=== PATIENT | female | born 1980 ===

== ENCOUNTER 2020-12-12 09:53 | Outpatient (REF) | payer OTHER, SELFPAY ==
[2020-12-12 13:45] LABS: CT PCR NOT DETECTED (Not Detect.); NG PCR NOT DETECTED (Not Detect.)
[2020-12-13 09:40] LABS: BV Int Neg Control Negative (Negative); BV Int Pos Control Positive (Positive)
== END 2020-12-12 09:54 | disposition home or self-care (01) ==
LOC: HO.LAB 09:53
PROVIDERS: Visit Provider Advanced Practice Midwife
DX: Z01.411 Encounter for gynecological examination (general) (routine) with abnormal findings (principal); R10.2 Pelvic and perineal pain; Z20.2 Contact with and (suspected) exposure to infections with a predominantly sexual mode of transmission
CPT/HCPCS: 87480; 87491; 87510; 87591; 87660

== ENCOUNTER 2020-12-21 12:20 | Outpatient (REF) | payer OTHER, SELFPAY ==
--- NOTE | ~2020-12-21 | US_ITS ---
EXAMINATION: ULTRASOUND PELVIS AND TRANSVAGINAL CLINICAL INFORMATION: Pelvic and perineal pain COMPARISON: None TECHNIQUE: Transabdominal and transvaginal ultrasound the pelvis is performed. FINDINGS: The uterus is anteverted, anteflexed measuring 8.0 cm in length, 3.5 cm in AP and 5.2 cm in transverse dimension. The endometrial thickness is 0.6 cm. The uterus is homogeneous in echotexture. There are small nabothian cysts seen in the cervix. The right ovary measures 2.8 x 1.4 x 1.5 cm and volume 3.1 mL. Previously right ovary measured 2.0 x 1.1 x 1.7 cm. Left ovary measures 2.0 x 1.3 x 1.4 cm and volume 2.9 mL. Previously left ovary measured 2.9 x 2.2 x 2.6 cm. Both ovaries are unremarkable. There is no free fluid in the cul-de-sac. US/US pelvic and transvaginal IMPRESSION: Unremarkable uterus and ovaries. Small nabothian cysts seen in the cervix.
== END 2020-12-21 12:21 | disposition home or self-care (01) ==
LOC: HO.US 12:20
PROVIDERS: PCP Internal Medicine; Visit Provider Advanced Practice Midwife
DX: R10.2 Pelvic and perineal pain (principal)
CPT/HCPCS: 76830; 76856

== ENCOUNTER → 2021-01-04 10:55 | Outpatient (BNVA) | payer OTHER, SELFPAY | PROVIDERS: PCP Internal Medicine; Visit Provider Advanced Practice Midwife ==

== ENCOUNTER 2023-04-11 09:39 | Outpatient (AMB) | payer OTHER, SELFPAY ==
--- NOTE | 2023-04-11 09:47 | A.OFFVIS_ITS ---
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 Scribed for FANNY Deluna by Marissa Hood biomedical engineering aide, on 04/11/2023 at 10:14 am EST. Cab Supervisor Required: No Information Interpreted: non-clinical & clinical Software Quality Assurance Engineer: Software Quality Assurance Engineer Present (Noreen) Allergies lactose [LACTOSE] Adverse Reaction (Unknown, Verified 04/11/23 09:52) GI UPSET milk [MILK] Adverse Reaction (Unknown, Verified 04/11/23 09:52) GI UPSET Is last menstrual period known: Yes Last menstrual period: 04/03/23 Post menopausal: No Patient : No HPI HPI Comments History of Present Illness Details She is a premenopausal woman presenting for annual exam. 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 Has oral lesions, bleeding gums. Unaware of any vaginal lesions, no unusual VB. Reports blood sugars are high at 108. She admits to eating healthy and tries to stay active with exercise. Currently not sexually active. Regular monthly periods that are more painful with cramping. Uses OTC for pain management. Denies vaginal itching and irritation. STD screening offered; she accepts. Denies family hx of breast, colon and ovarian cancer. Last pap smear 03/19/17. [facility] Medical History Behcet's disease History of anxiety History of depression Insomnia Nightmare disorder Surgical History Hx of tubal ligation Family History Maternal Grandmother Diabetes Mother Diabetes Social History Alcohol intake: never Patient Tobacco Use Status: Never used Tobacco Sexual orientation: Straight/Heterosexual Gender identity: Female Female Reproductive History Menstrual Duration of menses: 3-5 days Date of last menstrual period: 04/03/23 control method: permanent sterilization Permanent Sterilization: BTL Total pregnancies: 3 Full term: 3 Number of Living Children: 3 Date of last pap smear: 03/19/17 (neg pap and hp) History of abnormal pap smear: Yes (04/13 lgsil 06/13 colpo carol 1) Physical Exam Vital Signs: Last Vital Signs BP 122/70 04/11/23 09:49 BMI result Body Mass Index 26.3 Const General: cooperative, healthy appearing, well developed and alert Orientation/consciousness: patient oriented x3 HEENT Head: Yes normal to inspection Eyes General: appearance normal, both eyes and all related structures Neck Neck: Yes normal visual inspection Thyroid: Thyroid normal Chest Chest palpation & inspection: normal inspection of the chest Breast/axilla inspection: normal inspection of the breasts (no puckering, dimpling, peau de orange, retraction, discharge, masses) Breast/axilla palpation: normal palpation of the breasts Resp Effort & Inspection: normal respiratory effort GI Inspection: Yes normal to inspection Palpation (GI): Soft to palpation (to palpation) Rectal Exam - Female: deferred Other: trembling and anxious during pelvic exam General: Yes bladder normal to inspection External Female Exam: normal external appearance and normal appearance of the urethra Speculum Exam - Vagina: normal appearance of the vagina, normal palpation and normal vaginal discharge Speculum Exam - Cervix: normal appearance of the cervix and normal palpation Bimanual exam- vagina & uterus: normal palpation and normal palpation Bimanual Exam- Adnexa, other: normal adnexae and no masses Skin General skin exam: no rashes or lesions noted Neuro General: patient oriented x3 Cognition (Neuro): normal cognition Extrem General: Yes normal to inspection Psych Attitude: cooperative Thought process: Normal thought process present Assessment & Plan Assessment & Plan (1) Encounter for well woman exam: Code(s): Z01.419 - Encounter for gynecological examination (general) (routine) without abnormal findings Plan: Discussed: Current recommendations for pap smears per ASCCP guidelines Breast awareness and periodic self breast exams. Mammogram ordered. Maintaining a healthy lifestyle including a well balanced diet and routine exercise. Consult with PCP regarding blood sugars. Encouraged to use condoms for STD prevention if become sexually active. Encouraged patient to sign up for patient portal. All of her questions and concerns were addressed to the best of my ability. RTO in one year for AG. (2) Pelvic pain: Code(s): R10.2 - Pelvic and perineal pain Plan: BV testing and GC/CT panel done today. Await results and treat accordingly. Continue to use OTC with heating pad for pain management. (3) Dysmenorrhea: Code(s): N94.6 - Dysmenorrhea, unspecified Plan: Pelvic US ordered. Follow up for results. Orders: Orders MM tomosynthesis screening BI Today Z12.31 - Encounter for screening mammogram for malignant neoplasm of breast US pelvic and transvaginal Today N94.6 - Dysmenorrhea, unspecified Bacterial Vaginosis Panel Today N94.6 - Dysmenorrhea, unspecified, R10.2 - Pelvic and perineal pain CT NG by PCR Today N94.6 - Dysmenorrhea, unspecified, R10.2 - Pelvic and perineal pain Pap Smear Today Z01.419 - Encounter for gynecological examination (general) (routine) without abnormal findings Coding Level of Care Code Est Pt Prev Care 40-64y(74884) Diagnoses Encounter for well woman exam Z01.419 Pelvic pain R10.2 Dysmenorrhea N94.6
[2023-04-11 09:49] VITALS: BP 122/70; BMI 26.3
== END 2023-04-11 10:29 | disposition home or self-care (01) ==
LOC: HO.HWSW 09:39
PROVIDERS: PCP Internal Medicine; Visit Provider Advanced Practice Midwife
DX: Z01.419 Encounter for gynecological examination (general) (routine) without abnormal findings (principal); R10.2 Pelvic and perineal pain; N94.6 Dysmenorrhea, unspecified
CPT/HCPCS: 99396

== ENCOUNTER 2023-04-11 09:39 | Outpatient (REF) | payer OTHER, SELFPAY ==
[2023-04-12 05:15] LABS: CT PCR NOT DETECTED (Not Detect.); NG PCR NOT DETECTED (Not Detect.)
[2023-04-12 11:45] LABS: BV Int Neg Control Negative (Negative); BV Int Pos Control Positive (Positive)
== END 2023-04-11 09:40 | disposition home or self-care (01) ==
LOC: HO.LAB 09:39
PROVIDERS: PCP Internal Medicine; Visit Provider Advanced Practice Midwife
DX: R10.2 Pelvic and perineal pain (principal); N94.6 Dysmenorrhea, unspecified
CPT/HCPCS: 0353U; 87480; 87510; 87660

== ENCOUNTER 2023-04-11 10:24 | Outpatient (REF) | payer OTHER, SELFPAY ==
[2023-04-16 05:09] LABS: HPV mRNA E6/E7 rflx Not Detected (Not Detected)
== END 2023-04-11 10:25 | disposition home or self-care (01) ==
LOC: HO.LNP 10:24
PROVIDERS: Visit Provider Advanced Practice Midwife
DX: Z01.419 Encounter for gynecological examination (general) (routine) without abnormal findings (principal); Z11.51 Encounter for screening for human papillomavirus (HPV)
CPT/HCPCS: 87624; 88142

== ENCOUNTER 2023-04-25 10:59 | Outpatient (REF) | payer OTHER, SELFPAY ==
--- NOTE | ~2023-04-25 | US_ITS ---
EXAMINATION: US PELVIS CLINICAL INFORMATION: Dysmenorrhea. LMP 04/03/2023. COMPARISON: Pelvic ultrasound 02/19/2019. TECHNIQUE: Ultrasound of the pelvis is performed using both transabdominal and transvaginal transducers along with Doppler. Transvaginal imaging is performed due to inadequate visualization transabdominally. FINDINGS: The uterus is anteverted and measures 7.7 x 4.2 x 5 cm. No uterine mass. The endometrium measures 0.9 cm in thickness without discrete focal abnormality. Numerous simple appearing nabothian cysts overlie the cervix The ovaries are best visualized transabdominally with normal morphology and preserved flow at the moment of this examination. The right ovary measures approximately 2 x 0.8 x 1.2 cm (1 mL). The left ovary measures 3.2 x 1.3 x 2.3 cm (5 mL). Small amount of free fluid anterior to the uterus and adjacent to the left adnexa. US/US pelvic and transvaginal IMPRESSION: 1. Nonspecific small amount of free fluid anterior to the uterus and in the region of the left adnexa. 2. No discrete uterine or ovarian mass. 3. Normal sonographic appearance of the endometrium.
== END 2023-04-25 11:00 | disposition home or self-care (01) ==
LOC: HO.US 10:59
PROVIDERS: PCP Internal Medicine; Visit Provider Advanced Practice Midwife
DX: N94.6 Dysmenorrhea, unspecified (principal)
CPT/HCPCS: 76830; 76856

== ENCOUNTER 2023-05-14 12:38 | Outpatient (AMB) | payer OTHER, SELFPAY ==
[2023-05-14 12:56] VITALS: BP 110/74; BMI 27.1
--- NOTE | 2023-05-14 12:56 | A.OFFVIS_ITS ---
Intake Vital Signs 05/14/23 12:56 Height 4 ft 11 in Weight 134 lb BMI 27.1 BP 110/74 Intake Visit Reasons: US follow up Intake Note: The patient agreed to use of a medical record transcriber during this encounter. Scribed for FANNY Deluna by Marissa Hood medical record transcriber, on 05/14/2023 at 1:15 p am EST. Allergies lactose [LACTOSE] Adverse Reaction (Unknown, Verified 05/14/23 12:59) GI UPSET milk [MILK] Adverse Reaction (Unknown, Verified 05/14/23 12:59) GI UPSET HPI HPI Comments History of Present Illness Details She is here to discuss US results regarding dysmenorrhea. Reports she does not take pain medication. Denies using BC in the past. Mammogram scheduled 05/14/23. [facility] Medical History Behcet's disease History of anxiety History of depression Insomnia Nightmare disorder Surgical History Hx of tubal ligation Family History Maternal Grandmother Diabetes Mother Diabetes Social History Alcohol intake: never Patient Tobacco Use Status: Never used Tobacco Sexual orientation: Straight/Heterosexual Gender identity: Female Physical Exam Vital Signs: Last Vital Signs BP 110/74 05/14/23 12:56 BMI result Body Mass Index 27.1 Const General: cooperative, healthy appearing, comfortable, no acute distress, well developed, alert and awake Results Reviewed Results Reviewed: EXAMINATION: US PELVIS CLINICAL INFORMATION: Dysmenorrhea. LMP 04/03/2023. COMPARISON: Pelvic ultrasound 02/19/2019. TECHNIQUE: Ultrasound of the pelvis is performed using both transabdominal and transvaginal transducers along with Doppler. Transvaginal imaging is performed due to inadequate visualization transabdominally. FINDINGS: The uterus is anteverted and measures 7.7 x 4.2 x 5 cm. No uterine mass. The endometrium measures 0.9 cm in thickness without discrete focal abnormality. Numerous simple appearing nabothian cysts overlie the cervix The ovaries are best visualized transabdominally with normal morphology and preserved flow at the moment of this examination. The right ovary measures approximately 2 x 0.8 x 1.2 cm (1 mL). The left ovary measures 3.2 x 1.3 x 2.3 cm (5 mL). Small amount of free fluid anterior to the uterus and adjacent to the left adnexa. US/US pelvic and transvaginal IMPRESSION: 1. Nonspecific small amount of free fluid anterior to the uterus and in the region of the left adnexa. 2. No discrete uterine or ovarian mass. 3. Normal sonographic appearance of the endometrium. Collected: 04/11/23 Location: [facility] Received: 04/12/23 Interpretation General Category: Negative for intraepithelial lesion/malignancy. Adequacy: Endocervical component present. Interpretation: Inflammation with associated cellular changes. HPV mRNA E6/E7: Not detected This assay detects E6/E7 viral messenger RNA (mRNA) from 14 high-risk HPV types (16, 18, 31, 33, 35, 39, 45, 51, 52, 56, 58, 59, 66, 68) HPV testing performed by [facility], [place], [place]. See reference laboratory portion of the EMR for entire report. Clinical Information LMP:04/03/23 Previous PAP test:03/2017, [facility] I Material Received. Assessment & Plan Assessment & Plan (1) Encounter to discuss test results: Code(s): Z71.2 - Person consulting for explanation of examination or test findings Plan: Discussed: US findings; normal. All of her questions and concerns were addressed to the best of my ability and shared decision making. She is agreeable to plan of care. (2) Dysmenorrhea: Code(s): N94.6 - Dysmenorrhea, unspecified Plan: Advised to use 3 Advil 200 mg (600 milligrams) every 6 hourswith food for pain management. Medications: New ibuprofen take medication 1-3 days of your menses for cramping with food 600 mg PO Q6H PRN 60 tabs 1RF cramping Coding Level of Care Code Est Pt Level 3 (97777) Diagnoses Encounter to discuss test results Z71.2 Dysmenorrhea N94.6
== END 2023-05-14 14:11 | disposition home or self-care (01) ==
PROVIDERS: PCP Internal Medicine; Visit Provider Advanced Practice Midwife
DX: Z71.2 Person consulting for explanation of examination or test findings (principal); N94.6 Dysmenorrhea, unspecified
CPT/HCPCS: 99213

== ENCOUNTER → 2023-05-14 12:38 | Outpatient (BNVA) | payer OTHER, SELFPAY | PROVIDERS: PCP Internal Medicine; Visit Provider Advanced Practice Midwife | DX: Z71.2 Person consulting for explanation of examination or test findings (principal); N94.6 Dysmenorrhea, unspecified | CPT/HCPCS: 99212 ==

== ENCOUNTER 2023-05-15 13:55 | Outpatient (REF) | payer OTHER, SELFPAY ==
--- NOTE | ~2023-05-15 | MM_ITS ---
EXAMINATION: MM SCREENING DIGITAL BREAST TOMOSYNTHESIS, BILATERAL CLINICAL INFORMATION: Screening. Asymptomatic. COMPARISON: Mammography: This study is compared with prior exams dating back to 2013. TECHNIQUE: Digital breast tomosynthesis is performed in both the craniocaudal and mediolateral oblique views along with computer-aided detection (CAD). Synthesized 2D images are generated from the tomosynthesis. FINDINGS: There are scattered areas of fibroglandular density (ACR BI-RADS breast composition Category b). There are no significant masses, abnormal calcifications, or other abnormalities. MM/MM tomosynthesis screening BI IMPRESSION: No mammographic evidence of malignancy. ASSESSMENT: BI-RADS BI-RADS 1 - Negative RECOMMENDATION: Routine annual mammography screening. 1 year F/U This examination should not preclude the clinical evaluation of a suspicious palpable abnormality. This patient's information was entered into a reminder system with a target due date for their next mammogram.
== END 2023-05-15 13:56 | disposition home or self-care (01) ==
LOC: HO.MAMMO 13:55
PROVIDERS: PCP Internal Medicine; Visit Provider Advanced Practice Midwife
DX: Z12.31 Encounter for screening mammogram for malignant neoplasm of breast (principal)
CPT/HCPCS: 77063; 77067

== ENCOUNTER → 2023-05-15 14:00 | Outpatient (BNV) | payer OTHER, SELFPAY | PROVIDERS: PCP Internal Medicine; Visit Provider Radiology Diagnostic Radiology | DX: Z12.31 Encounter for screening mammogram for malignant neoplasm of breast (principal) | CPT/HCPCS: 77063; 77067 ==

== ENCOUNTER 2024-04-15 13:37 | Outpatient (REF) | payer OTHER, SELFPAY ==
[2024-04-15 17:29] LABS: Bacterial Vaginosis PCR NEGATIVE (Negative); Candida Group PCR NOT DETECTED (Not Detect); Candida glab krusei PCR NOT DETECTED (Not Detect); Trichomonas vaginalis PCR NOT DETECTED (Not Detect)
[2024-04-15 17:55] LABS: CT PCR NOT DETECTED (Not Detect.); NG PCR NOT DETECTED (Not Detect.)
== END 2024-04-15 13:38 | disposition home or self-care (01) ==
LOC: HO.LAB 13:37
PROVIDERS: PCP Internal Medicine; Visit Provider Advanced Practice Midwife
DX: R10.2 Pelvic and perineal pain (principal); Z01.419 Encounter for gynecological examination (general) (routine) without abnormal findings
CPT/HCPCS: 0352U; 81003; 87491; 87591; 99396

== ENCOUNTER 2024-04-15 13:37 | Outpatient (AMB) | payer OTHER, SELFPAY ==
--- NOTE | 2024-04-15 13:53 | MHC.OFFVIS ---
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 Doing well with concerns: Having health issues this year. Has IBS concerns-abdominal pain on left lower. She tries to eat healthy and stays active with exercise. Regular monthly menses. Currently is not sexually active. She denies vaginal itching and irritation. STI screening offered; she declined. Denies family history of breast, ovarian or colon cancer. Last pap smear 2022, negative. History of ELAINE 1. Mammogram: 2022. [facility] Medical History Behcet's disease Nightmare disorder Insomnia History of anxiety History of depression Surgical History Hx of tubal ligation Family History Maternal Grandmother Diabetes Mother Diabetes Social History Alcohol intake: never Patient Tobacco Use Status: Never used Tobacco Sexual orientation: Straight/Heterosexual Gender identity: Female Female Reproductive History Menstrual Duration of menses: 3-5 days Date of last menstrual period: 04/01/24 control method: permanent sterilization Permanent Sterilization: BTL Total pregnancies: 3 Full term: 3 Number of Living Children: 3 Date of last pap smear: 04/11/23 (neg pap and hpv) History of abnormal pap smear: Yes (04/13 lgsil 06/13 colpo elaine 1) Date of Mammogram: 05/15/23 (Birad 1) Review of Systems Const All systems reviewed & are unremarkable except as noted in HPI and below Reports as per HPI Eyes Reports no additional complaints ENT Reports no additional complaints Card Reports no additional complaints Resp Reports no additional complaints GI Reports as per HPI and Reports no additional complaints Reports as per HPI Musc Reports no additional complaints Skin/Breast Reports as per HPI Neuro Reports no additional complaints Psych Reports no additional complaints Endo Reports no additional complaints Ethan/Lymph Reports no additional complaints Aller/Immun Reports no additional complaints Physical Exam Vital Signs: Last Vital Signs BP 90/58 L 04/15/24 13:55 BMI result Body Mass Index 25.9 Const General: cooperative, healthy appearing, no acute distress, well developed and alert Orientation/consciousness: patient oriented x3 HEENT Head: Yes normal to inspection Eyes General: appearance normal, both eyes and all related structures Neck Neck: Yes normal visual inspection Thyroid: Thyroid normal Chest Chest palpation & inspection: normal inspection of the chest and other (no puckering, dimpling, peau de orange, retraction, discharge, masses) Breast/axilla inspection: normal inspection of the breasts Breast/axilla palpation: normal palpation of the breasts Resp Effort & Inspection: normal respiratory effort GI Inspection: Yes normal to inspection and Yes scar Palpation (GI): Soft to palpation, Tenderness to palpation present (GI) (No guarding or rebound) in the LLQ and Other GI palpation findings present (Generalized tenderness in the lower abdomen, increased on left) Rectal Exam - Female: deferred General: Yes bladder normal to palpation External Female Exam: normal external appearance and normal appearance of the urethra Speculum Exam - Vagina: normal appearance of the vagina, normal palpation and normal vaginal discharge Speculum Exam - Cervix: normal appearance of the cervix and normal palpation Bimanual exam- vagina & uterus: normal bimanual exam, normal palpation, uterine size normal, bladder normal to palpation, normal palpation and non-tender Bimanual Exam- Adnexa, other: no masses and tender on the left Skin General skin exam: no rashes or lesions noted Rashes: no rashes Neuro General: patient oriented x3 Cognition (Neuro): normal cognition Extrem General: Yes normal to inspection Psych Attitude: cooperative Thought process: Normal thought process present Results AMB Urinalysis, Automated UA Leukoctes 0.5 Cristina/uL Last Edit by JENIFER Blackman on 04/15/24 14:38 UA Nitrite Negative Last Edit by JENIFER Blackman on 04/15/24 14:38 UA Urobilinogen 0 mg/dL Last Edit by JENIFER Blackman on 04/15/24 14:38 UA Protein 0.5 mg/dL Last Edit by Bonny Cindy Fairbanks A on 04/15/24 14:38 UA pH 6.5 Last Edit by Bonny Cindy Fairbanks A on 04/15/24 14:38 UA Blood 0 Mervin/uL Last Edit by Bonny Cindy Fairbanks A on 04/15/24 14:38 UA Specific [place] 1.015 Last Edit by Bonny Fairbanks A on 04/15/24 14:38 UA Ketone Positive Last Edit by Bonnywarren Fairbanks A on 04/15/24 14:38 trace Bonny Fairbanks 04/15/24 14:38 UA Bilirubin 0 mg/dL Last Edit by Bonnywarren Fairbanks A on 04/15/24 14:38 UA Glucose 0 mg/dL Last Edit by Bonny Cindy Fairbanks A on 04/15/24 14:38 Results Reviewed Results Reviewed: Laboratory Last Values Urine pH (Auto) 6.5 04/15/24 14:32 Specific [place] (Auto) 1.015 04/15/24 14:32 Urine Protein (Auto) 0.5 mg/dL 04/15/24 14:32 Glucose (UA)(Auto) 0 mg/dL 04/15/24 14:32 Urine Ketones (Auto) Positive 04/15/24 14:32 Urine Blood (Auto) 0 Mervin/uL 04/15/24 14:32 Urine Nitrite (Auto) Negative 04/15/24 14:32 Urine Bilirubin (Auto) 0 mg/dL 04/15/24 14:32 Urine Urobilinogen (Auto) 0 mg/dL 04/15/24 14:32 Leukocyte Esterase (Auto) 0.5 Cristina/uL 04/15/24 14:32 Assessment & Plan Assessment & Plan (1) Encounter for well woman exam with routine gynecological exam: Code(s): Z01.419 - Encounter for gynecological examination (general) (routine) without abnormal findings Category: Medical Plan: Discussed: Current recommendations for pap smears per ASCCP guidelines. Breast awareness and periodic breast exams. Maintain a healthy lifestyle including a well balanced diet and routine exercise. Use condoms for STI and prevention. Pelvic pain workup include ultrasound, urine, UPT negative, cultures, follow up in person for test results. Pelvic warnings and when to seek immediate care in the ED reviewed. 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 Advised to follow up with GI provider. Mammogram yearly. Colonoscopy >45, or at risk sooner. Patient verbalizes understanding and agrees to the plan of care. She was given opportunity to ask questions and all questions were answered to the best of my ability. RTO in one year for annual power tool repair technician examination. This note is constructed using voice recognition software. While every effort has been made to ensure accuracy, bark tanner errors may have been included. Orders: Orders MM tomosynthesis screening BI Today Z12.31 - Encounter for screening mammogram for malignant neoplasm of breast US pelvic and transvaginal Today R10.2 - Pelvic and perineal pain Bacterial Vaginosis Panel Today R10.2 - Pelvic and perineal pain CT NG by PCR Today R10.2 - Pelvic and perineal pain AMB Urinalysis Automated Today R10.2 - Pelvic and perineal pain Coding Level of Care Code Est Pt Prev Care 40-64y(48508) Diagnoses Encounter for well woman exam with routine gynecological exam Z01.419
[2024-04-15 13:55] VITALS: BP 90/58; BMI 25.9
== END 2024-04-15 14:51 | disposition home or self-care (01) ==
PROVIDERS: PCP Internal Medicine; Visit Provider Advanced Practice Midwife
DX: Z01.419 Encounter for gynecological examination (general) (routine) without abnormal findings (principal); R10.2 Pelvic and perineal pain
CPT/HCPCS: 99396

== ENCOUNTER 2024-04-15 14:32 | Outpatient (REF) | payer OTHER, SELFPAY | END 2024-04-15 14:33 | disposition home or self-care (01) | LOC: HO.LNP 14:32 | PROVIDERS: Visit Provider Advanced Practice Midwife | DX: Z13.89 Encounter for screening for other disorder (principal) ==

== ENCOUNTER 2024-04-23 11:29 | Outpatient (REF) | payer OTHER, SELFPAY ==
--- NOTE | ~2024-04-23 | US_ITS ---
EXAMINATION: US PELVIS CLINICAL INFORMATION: Pelvic pain COMPARISON: Pelvic ultrasound 04/25/2023. TECHNIQUE: Ultrasound of the pelvis is performed using both transabdominal and transvaginal transducers along with Doppler. Transvaginal imaging is performed due to inadequate visualization transabdominally. FINDINGS: Uterus: The uterus is anteverted and measures 7.0 x 3.8 x 5.8 cm. Myometrium appears normal. Nabothian cysts in the cervix. The double wall endometrial thickness is 11 mm. Adnexa: Right ovary measures 3.3 x 2.2 x 1.7 cm. 6.5 mL. Color Doppler is normal. Left ovary measures 2.3 x 1.5 x 0.9 cm. 1.6 mL. Doppler Doppler is normal. US/US pelvic and transvaginal IMPRESSION: No explanation for pelvic pain. Electronically signed by: Omega Chapa MD 05/06/2024 03:21 PM EDT
== END 2024-04-23 11:30 | disposition home or self-care (01) ==
LOC: HO.US 11:29
PROVIDERS: PCP Internal Medicine; Visit Provider Advanced Practice Midwife
DX: R10.2 Pelvic and perineal pain (principal)
CPT/HCPCS: 76830; 76856

== ENCOUNTER 2024-05-20 11:15 | Outpatient (AMB) | payer OTHER, SELFPAY ==
--- NOTE | 2024-05-20 11:17 | A.OFFVIS_ITS ---
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 History of IBS. She denies any pain today and reports she has a scheduled appointment at [facility] to see a [facility] provider[facility] Medical History Behcet's disease Nightmare disorder Insomnia History of anxiety History of depression Surgical History Hx of tubal ligation Family History Maternal Grandmother Diabetes Mother Diabetes Social History Alcohol intake: never Patient Tobacco Use Status: Never used Tobacco Sexual orientation: Straight/Heterosexual Gender identity: Female Review of Systems Const All systems reviewed & are unremarkable except as noted in HPI and below Endo Reports no additional complaints Physical Exam Vital Signs: Last Vital Signs BP 90/60 05/20/24 11:19 Const General: cooperative, healthy appearing and no acute distress Psych Appearance: well kempt Attitude: cooperative Thought process: Normal thought process present Results Reviewed Results Reviewed: [place] [id number] Ultrasound Report Signed Patient: Connie Regan MR#: [id number] : 1980 Acct:[id number] Age/Sex: 44 / F ADM Date: 04/23/24 Loc: [facility].US Attending Dr: Grace Whittaker CNM Ordering Physician: Grace Whittaker CNM Date of Service: 04/23/24 Procedure(s): US pelvic and transvaginal Accession Number(s): [id number] cc: Grace Whittaker CNM; TAI BRENNAN MD~ EXAMINATION: US PELVIS CLINICAL INFORMATION: Pelvic pain COMPARISON: Pelvic ultrasound 04/25/2023. TECHNIQUE: Ultrasound of the pelvis is performed using both transabdominal and transvaginal transducers along with Doppler. Transvaginal imaging is performed due to inadequate visualization transabdominally. FINDINGS: Uterus: The uterus is anteverted and measures 7.0 x 3.8 x 5.8 cm. Myometrium appears normal. Nabothian cysts in the cervix. The double wall endometrial thickness is 11 mm. Adnexa: Right ovary measures 3.3 x 2.2 x 1.7 cm. 6.5 mL. Color Doppler is normal. Left ovary measures 2.3 x 1.5 x 0.9 cm. 1.6 mL. Doppler Doppler is normal. US/US pelvic and transvaginal IMPRESSION: No explanation for pelvic pain. Electronically signed by: Omega Chapa MD 05/06/2024 03:21 PM EDT RP Dictated By: Omega Chapa MD Signed By: <Electronically signed by Omega Chapa MD in OV> 05/06/24 1521 DD/ 1137 TD/TT: 04/23/24 1146 Athletic Scout: TAMMY Assessment & Plan Assessment & Plan (1) Encounter to discuss test results: Code(s): Z71.2 - Person consulting for explanation of examination or test findings Category: Medical Plan Discussed: Ultrasound findings are unremarkable. Advised to follow up with her GI provider for further assessment. She has a appointment 04/21/2025 for her annual. Discussed dietary concerns. All of her questions and concerns were addressed to the best of my ability and shared decision making. She is agreeable to the plan of care. This note is constructed using voice recognition software. While every effort has been made to ensure accuracy, exhibit technician errors may have been included. Coding Level of Care Code Est Pt Level 3 (28868) Diagnoses Encounter to discuss test results Z71.2
[2024-05-20 11:19] VITALS: BP 90/60
== END 2024-05-20 11:36 | disposition home or self-care (01) ==
LOC: HO.HWS 11:15
PROVIDERS: PCP Internal Medicine; Visit Provider Advanced Practice Midwife
DX: Z71.2 Person consulting for explanation of examination or test findings (principal)
CPT/HCPCS: 99213

== ENCOUNTER → 2024-05-20 11:15 | Outpatient (BNVA) | payer OTHER, SELFPAY | PROVIDERS: PCP Internal Medicine; Visit Provider Advanced Practice Midwife | DX: Z71.2 Person consulting for explanation of examination or test findings (principal) | CPT/HCPCS: 99212 ==

== ENCOUNTER 2024-05-22 07:54 | Outpatient (REF) | payer OTHER, SELFPAY ==
--- NOTE | ~2024-05-22 | MM_ITS ---
EXAMINATION: MM SCREENING DIGITAL BREAST TOMOSYNTHESIS, BILATERAL CLINICAL INFORMATION: Screening. Asymptomatic. COMPARISON: Mammography: Comparison is made with available priors TECHNIQUE: Digital breast mammography with tomosynthesis is performed in both the craniocaudal and mediolateral oblique views along with computer-aided detection (CAD). FINDINGS: The breasts are heterogeneously dense, which may obscure small masses (ACR BI-RADS breast composition Category c). There are no significant masses, abnormal calcifications, or other abnormalities. MM/MM tomosynthesis screening BI IMPRESSION: No mammographic evidence of malignancy. ASSESSMENT: BI-RADS BI-RADS 1 - Negative RECOMMENDATION: Routine annual mammography screening. 1 year F/U This examination should not preclude the clinical evaluation of a suspicious palpable abnormality. This patient's information was entered into a reminder system with a target due date for their next mammogram. Electronically signed by: Vandana Valentin DO 06/03/2024 11:58 AM EDT
== END 2024-05-22 07:55 | disposition home or self-care (01) ==
LOC: HO.MAMMO 07:54
PROVIDERS: PCP Internal Medicine; Visit Provider Advanced Practice Midwife
DX: Z12.31 Encounter for screening mammogram for malignant neoplasm of breast (principal)
CPT/HCPCS: 77063; 77067

== ENCOUNTER → 2024-05-22 08:15 | Outpatient (BNV) | payer OTHER, SELFPAY | PROVIDERS: PCP Internal Medicine; Visit Provider Internal Medicine | DX: Z12.31 Encounter for screening mammogram for malignant neoplasm of breast (principal) | CPT/HCPCS: 77063; 77067 ==